=== PATIENT | female | born 1965 | race Caucasian/White ===

== ENCOUNTER 2018-11-13 10:19 | Emergency (ER) | payer MEDICARE, OTHER ==
[2018-11-13] MEDS: IPRATROPIUM (NEB) 0.5 MG/2.5 ML AMP NEB (11:14)
[2018-11-13] MEDS: ALBUTEROL 0.083% (NEB) 2.5 MG/3 ML AMP NEB (11:14)
[2018-11-13] MEDS: DEXAMETHASONE 10 MG/ML 1 ML INJ IM (12:07)
[2018-11-13] MEDS: IPRATROPIUM (NEB) 0.5 MG/2.5 ML AMP INH (12:27)
[2018-11-13] MEDS: ALBUTEROL 0.5% (NEB) 2.5 MG/0.5 ML AMP INH (12:27)
== END 2018-11-13 13:34 | disposition home or self-care (01) ==
LOC: FTE 13:34
DX: J45.901 Unspecified asthma with (acute) exacerbation (principal)
CPT/HCPCS: 71045; 94644; 94664; 96372; 99284-25